=== PATIENT | male | born 1960 | race Caucasian/White ===

== ENCOUNTER 2020-11-02 14:12 | Emergency (ER) | payer OTHER ==
[2020-11-02 15:15] VITALS: BMI 26.0
[2020-11-02] MEDS ORDERED: CASIRIVIMAB/IMDEVIMAB 10 ML in SODIUM CHLORIDE 100 ML IVPB ONE (15:22)
[2020-11-02 16:02] LABS: SARS COV-2 MOLECULAR Presumptive Positive (Negative)
[2020-11-02 19:04] VITALS: BP 150/90; PULSE 65; TEMP 98.2
[2020-11-03 12:07] LABS: SARS-CoV-2 NAA Detected (Not Detected)
== END 2020-11-02 19:00 | disposition home or self-care (01) ==
LOC: JCOVINFU 14:12
DX: U07.1 COVID-19 (principal)
CPT/HCPCS: 93005; 93010; 99284-25; C9803; M0240; Q0240; U0003; U0005

== ENCOUNTER 2023-09-14 19:03 | Emergency (ER) | payer OTHER ==
[2023-09-14 19:19] VITALS: BP 154/95; PULSE 72; RESP 18; TEMP 97.8; BMI 27.7
== END 2023-09-14 21:05 | disposition home or self-care (01) ==
LOC: FER 19:03
PROC: 2Y41X5Z Packing of Nasal Region using Packing Material (ICD-10-PCS; principal; 2023-09-14)
DX: R04.0 Epistaxis (principal)
CPT/HCPCS: 99282-25

== ENCOUNTER 2023-09-15 12:17 | Emergency (ER) | payer OTHER ==
[2023-09-15 12:41] VITALS: BP 139/65; PULSE 62; RESP 20; TEMP 98.2; BMI 27.3
[2023-09-15] MEDS ORDERED: OXYMETAZOLINE 0.05% NASAL SOLUTION 15 ML BOTTLE NS ONE (12:47)
[2023-09-15] MEDS: OXYMETAZOLINE 0.05% NASAL SOLUTION 15 ML BOTTLE NS ONE (13:00)
== END 2023-09-15 13:01 | disposition home or self-care (01) ==
LOC: FER 12:17
DX: R04.0 Epistaxis (principal)
CPT/HCPCS: 99283-25